=== PATIENT | male | born 1995 | race Caucasian/White ===

== ENCOUNTER 2022-04-17 14:21 | Emergency (ER) | payer BC, SELFPAY ==
[2022-04-17 14:29] VITALS: BP 132/85; PULSE 93; RESP 16; TEMP 36.8; O2SAT 98
--- NOTE | 2022-04-17 15:42 | ED.GENADULT ---
HPI - General Adult General Chief complaint: Headache Stated complaint: migraine Source: patient Mode of arrival: ambulatory Limitations: no limitations History of Present Illness HPI narrative: Patient presents for evaluation of headache. Symptom onset this morning. He noted symptoms waking for the day. He states the pain was originally in the right retro-orbital region with circumferential radiation globally. Pain was initially 6/10 severity but he took some Excedrin which seemed to help. His current pain level is 3/10 severity, described as throbbing. Pain is no in the right parietal region. He had some photophobia earlier but that has resolved. No nausea. No neurological changes. No visual disturbance. He missed work is requesting a work note. No additional complaints or concerns Related Data Home Medications Medication Instructions Recorded Confirmed No Home Medications 04/17/22 04/17/22 Allergies Allergy/AdvReac Type Severity Reaction Status Date / Time No Known Allergies Allergy Verified 04/17/22 14:29 Review of Systems Review of Systems: CONSTITUTIONAL: DENIES FEVER, CHILLS, OR SWEATS. EYES: REPORTS PHOTOPHOBIA EARLIER, NOW RESOLVED. DENIES REDNESS, OR DISCHARGE. ENT: DENIES RHINORRHEA, CONGESTION, SORE THROAT, OR OTALGIA. CARDIOVASCULAR: DENIES CHEST PAIN, PALPITATIONS, OR EDEMA. RESPIRATORY: DENIES COUGH OR DYSPNEA. GASTROINTESTINAL: DENIES ABDOMINAL PAIN, NAUSEA, VOMITING, OR DIARRHEA. GENITOURINARY: DENIES DYSURIA OR HEMATURIA. SKIN: DENIES RASH OR ITCHING. MUSCULOSKELETAL: DENIES BACK PAIN, JOINT PAIN, OR MYALGIA. NEUROLOGIC: REPORTS HEADACHE. DENIES NUMBNESS, DIZZINESS, OR WEAKNESS. PSYCHIATRIC: DENIES ANXIETY OR DEPRESSION. [facility] Past Medical History Medical History No pertinent past medical history Surgical History Surgical History No pertinent past surgical history Family History Family History Mother Family history non-contributory Social History Social History Smoking status: Never smoker Alcohol intake: current Alcohol use details: SOCIAL Substance use: never Gender identity (if verbalized by the patient): Male Spiritual care concerns: No Exam Narrative: GENERAL: Well-appearing, well-nourished, and in no acute distress. HEAD: Normocephalic, atraumatic. EYES: PERRLA and EOMI. ENT: Nares clear, no rhinorrhea or epistaxis. Mucous membranes moist. Oropharynx without tonsillar hypertrophy exudate or other lesions. Bilateral TMs pearly granger nonbulging NECK: Supple. No adenopathy or masses. No carotid bruits or JVD CHEST: Clear to auscultation. No respiratory distress. No wheezes rales or rhonchi HEART: Regular rate and rhythm. No murmur heard. Normal peripheral pulses. ABDOMEN: Soft, nontender, nondistended, normal active bowel sounds. EXTREMITIES: Normal range of motion. No edema. SKIN: Warm, dry, no rash. NEURO: No focal deficits. Normal [id number] exam. Able to perform rapid alternating movements without difficulty. Comprehensive neurological exam intact. Alert and oriented x3. PSYCH: Normal mood and affect. Course Course Emergency Course: This is a 27-year-old male who presented for evaluation of headache. He had already taken Excedrin prior to arrival and stated that his pain was controlled while here. He states he simply came in for a work note to excuse him today. Note provided. He is neurologically intact. Increase hydration. Follow up with primary provider this coming week. [id number] meds for symptom management. Go to the ER for worsening symptoms. Patient in agreement with plan of care. Level of Care: Express Care Visit Vital Signs Vital signs: Vital Signs Temperature 36.8 C 04/17/
[2022-04-17] MEDS: KETOROLAC (*BKC) 60 MG/2 ML VIAL IM (15:43)
== END 2022-04-17 16:07 | disposition home or self-care (01) ==
PROVIDERS: Emergency Provider Nurse Practitioner
DX: R51.9 Headache, unspecified (principal)
CPT/HCPCS: 96372; 99213; G0463; J1885

== ENCOUNTER 2022-05-14 10:58 | Emergency (ER) | payer BC, SELFPAY ==
--- NOTE | ~2022-05-14 | XR_ITS ---
EXAMINATION: XR wrist LT min 3V DATE: 05/14/2022 11:24 INDICATION: Enlarged left wrist pain after pushing a heavy object 2 days prior TECHNIQUE: Posteroanterior, ulnar deviation, oblique, and lateral views of the left wrist were obtain ed. COMPARISON: none FINDINGS: Alignment is normal. No fracture. Joint spaces are normal. Soft tissues are unremarkable. IMPRESSION: 1. Negative left wrist radiographs. Reviewed, dictated and finalized at location A. [employer]
[2022-05-14 11:04] VITALS: BP 115/101; PULSE 98; RESP 20; TEMP 36.6; O2SAT 98
--- NOTE | 2022-05-14 11:16 | ED.UPPEXIN ---
HPI - Extremity Injury (Upper) General Chief Complaint: Extremity Injury, Upper Stated Complaint: left wrist injury Time Seen by Provider: 05/14/22 11:16 History of Present Illness HPI narrative: patient was pushing a metal object and felt a pop in his left wrist 2 days ago. no swelling no bruising no deformity noted pain with flexion of left wrist. Related Data Home Medications Medication Instructions Recorded Confirmed No Home Medications 04/17/22 05/14/22 Allergies Allergy/AdvReac Type Severity Reaction Status Date / Time No Known Allergies Allergy Verified 05/14/22 11:06 Review of Systems Review of Systems: CONSTITUTIONAL: Denies fever, chills, or sweats. EYES: Denies visual changes, redness, or discharge. ENT: Denies rhinorrhea, congestion, sore throat, or otalgia. CARDIOVASCULAR: Denies chest pain, palpitations, or edema. RESPIRATORY: Denies cough or dyspnea. GASTROINTESTINAL: Denies abdominal pain, nausea, vomiting, or diarrhea. GENITOURINARY: Denies dysuria or hematuria. SKIN: Denies rash or itching. MUSCULOSKELETAL: Denies back pain, joint pain, or myalgia. NEUROLOGIC: Denies headache, numbness, or weakness. PSYCHIATRIC: Denies anxiety or depression. [facility] Past Medical History Medical History (Updated 05/14/22 @ 11:20 by JONATHAN DoyleP) No pertinent past medical history Surgical History Surgical History No pertinent past surgical history Family History Family History Mother Family history non-contributory Social History Social History Smoking status: Never smoker Alcohol intake: current Alcohol use details: SOCIAL Substance use: never Gender identity (if verbalized by the patient): Male Spiritual care concerns: No Comments At time of signature, agree with nursing past medical, surgical, social and family history. There is no relevant family history pertinent to the presenting complaint Exam Narrative: GENERAL: Well-appearing, well-nourished, and in no acute distress. HEAD: Normocephalic, atraumatic. EYES: PERRLA and EOMI. ENT: Nares clear, no rhinorrhea or epistaxis. Mucous membranes moist. NECK: Supple. CHEST: Clear to auscultation. No respiratory distress. HEART: Regular rate and rhythm. No murmur heard. Normal peripheral pulses. ABDOMEN: Soft, nontender, nondistended, normal active bowel sounds. EXTREMITIES: Normal range of motion. No edema. HAND EXAM - Skin intact, no laceration, no swelling, no erythema, normal digit cascade with flexion of fingers, median nerve, ulnar nerve, radial nerve is intact. Normal sensation of each side of each finger, can perform `ok? sign, `cross over finger test of index and middle fingers? and `thumbs up? sign, normal thumb opposition, no scissoring. good capillary refill and radial pulse. normal flexion and extension of fingers and wrist. normal supination at wrist. Normal forearm and elbow exam. SKIN: Warm, dry, no rash. NEURO: No focal deficits. Alert and oriented x3. Tayla Coma Scale Eye Opening: Spontaneous 4 [place] Coma Scale Motor: Obeys Commands 6 [place] Coma Scale Verbal: Oriented 5 [place] Coma Scale Total 15 Course Course Level of Care: Express Care Visit Vital Signs Vital signs: Vital Signs Temperature 36.6 C 05/14/22 11:04 Pulse Rate 98 05/14/22 11:04 Respiratory Rate 05/14/22 11:04 Blood Pressure 115/101 H 05/14/22 11:04 Pulse Oximetry 98 05/14/22 11:04 Oxygen Delivery Room Air 05/14/22 11:04 Temperature 36.6 C 05/14/22 11:04 Pulse Rate 98 05/14/22 11:04 Respiratory Rate 05/14/22 11:04 Blood Pressure 115/101 H 05/14/22 11:04 Pulse Oximetry 98 05/14/22 11:04 Oxygen Delivery Room Air 05/14/22 11:04 Please TERRA schedule a followup visit with your personal physician for los
== END 2022-05-14 11:40 | disposition home or self-care (01) ==
PROVIDERS: Emergency Provider Nurse Practitioner Family; PCP Emergency Medicine
DX: S60.212A Contusion of left wrist, initial encounter (principal); X50.0XXA Overexertion from strenuous movement or load, initial encounter; S63.502A Unspecified sprain of left wrist, initial encounter; S66.912A Strain of unspecified muscle, fascia and tendon at wrist and hand level, left hand, initial encounter
CPT/HCPCS: 73110; 99213; G0463